=== PATIENT | female | born 1955 | race Caucasian/White ===

== ENCOUNTER 2016-10-08 22:37 | Emergency (ER) | payer OTHER ==
[~2016-10-08 22:37] MED LIST: ASPI81 PO; FISH1000 PO; MOTR200T47
[2016-10-08 22:39] VITALS: BP 146/73; PULSE 77; RESP 18; TEMP 97.7; O2SAT 97
--- NOTE | 2016-10-08 22:54 | PD ---
Physical Exam Time Seen by Provider: 22:51 Narrative 60 y/o female here for evaluation of abdominal discomfort, worsening, over the past several hours. Associated n/v. Denies fevers, chills, dysuria, increased frequency, diarrhea, constipation. vital signs reviewed. Seen at triage desk. Awaiting bed placement. Data Data Last Documented VS Vital Signs Date Time Temp Pulse Resp B/P Pulse Ox O2 Delivery O2 Flow Rate FiO2 10/08/16 22:39 97.7 77 18 146/73 97 Room Air [facility] Medical Record Reviewed: Yes Supervised Visit with JESENIA: Misbah Ngo October 08, 2016 22:54
[2016-10-08] MEDS ORDERED: SODIUM CHLORIDE 0.9% FLUSH 10 ML FLUSH IV FLUSH PRN (23:00)
[2016-10-08 23:12] VITALS: RESP 22; O2SAT 98
[2016-10-08] MEDS ORDERED: ONDANSETRON HCL 4 MG/2 ML VIAL ONE (23:13)
[2016-10-08 23:21] LABS: AUTOMATED NEUTROPHIL # 9.4 TH/MM3 (1.8-7.7); BASOPHIL # 0.1 TH/MM3 (0-0.2); BASOPHIL % 0.6 % (0.0-2.0); EOSINOPHIL # 0.1 TH/MM3 (0-0.4); EOSINOPHIL % 0.7 % (0.0-4.0); HEMATOCRIT 37.6 % (35.0-46.0); HEMO FLAGS DIFF FINAL; LYMPH % 20.2 % (9.0-44.0); LYMPHOCYTE # 2.7 TH/MM3 (1.0-4.8); MEAN CELL VOLUME 86.1 FL (80.0-100.0); MEAN CORPUSCULAR HEMOGLOBIN 28.5 PG (27.0-34.0); MONO % 6.9 % (0.0-8.0); NEUT % 71.6 % (16.0-70.0); PLATELET COUNT 308 TH/MM3 (150-450); RED BLOOD COUNT 4.36 MIL/MM3 (4.00-5.30); RED CELL DISTRIBUTION WIDTH 13.6 % (11.6-17.2); WHITE BLOOD COUNT 13.2 TH/MM3 (4.0-11.0)
[2016-10-08] MEDS ORDERED: SODIUM CHLOR 0.9% 1000 ML INJ 1,000 ML IV ONE (23:30)
[2016-10-08] MEDS ORDERED: ONDANSETRON HCL 4 MG/2 ML VIAL IV PUSH ONE (23:30)
[2016-10-08] MEDS ORDERED: MORPHINE SULFATE 8 MG/ML INJ IV PUSH ONE (23:30)
[2016-10-08 23:38] LABS: ALT (GPT) 25 U/L (10-53); ANION GAP 7 MEQ/L (5-15); AST (GOT) 18 U/L (15-37); BICARBONATE 28.4 MEQ/L (21.0-32.0); BLOOD UREA NITROGEN 21 MG/DL (7-18); CHLORIDE 105 MEQ/L (98-107); GLOMERULAR FILTRATION RATE 50 ML/MIN (>89); POTASSIUM 4.2 MEQ/L (3.5-5.1); SODIUM (NA) 140 MEQ/L (136-145)
[2016-10-08 23:40] LABS: ALKALINE PHOSPHATASE 66 U/L (45-117); TOTAL BILIRUBIN ADULT 0.4 MG/DL (0.2-1.0)
[2016-10-09] MEDS ORDERED: IOHEXOL 350 MG/ML 10 ML VIAL (for RAD DIAG) IV ONE (00:35)
--- NOTE | 2016-10-09 00:59 | RADRPT ---
EXAM DATE/TIME: 10/09/2016 00:34 [place] COMPARISON: No previous studies available for comparison. INDICATIONS : Low abdomen pain today. IV CONTRAST: 90 cc Omnipaque 350 (iohexol) IV ORAL CONTRAST: No oral contrast ingested. RADIATION DOSE: 9.96 CTDIvol (mGy) MEDICAL HISTORY : Cardiovascular disease. Hypertension. SURGICAL HISTORY : None. ENCOUNTER: Initial ACUITY: 2 days PAIN SCALE: 10/10 LOCATION: Bilateral low abdomen TECHNIQUE: Volumetric scanning of the abdomen and pelvis was performed. Using automated exposure control and ad justment of the mA and/or kV according to patient size, radiation dose was kept as low as reasonably achievable to obtain optimal diagnostic quality images. FINDINGS: Examination of the lung bases demonstrates no abnormality. No pleural fluid is identified. No pulmona ry nodules are present. The liver and spleen are normal in size and no focal defects are identified. The gallbladder and pancreas are unremarkable. No intrahepatic or extrahepatic ductal dilatation is s een. The adrenal glands are unremarkable. The left kidney is unremarkable. There is mild right hydron ephrosis and hydroureter with a 2 mm stone at the right ureteropelvic junction. Examination of the pelvis demonstrates no evidence of free fluid or pelvic mass. No abnormally enlarg ed inguinal or retroperitoneal lymph nodes are present. The bladder is unremarkable. CONCLUSION: 1. 2 mm right ureteropelvic junction stone with mild right hydronephrosis Fidencio Ward MD on October 09, 2016 at 0:55 Board Certified Radiologist. This report was verified electronically.
[2016-10-09] MEDS ORDERED: HYDROmorphone HCL PF 1 MG/ML VIAL IV PUSH ONE (01:00)
[2016-10-09 01:23] LABS: BLOOD, URINE LARGE (NEG); GLUCOSE,URINE NEG (NEG); KETONE, URINE NEG (NEG); MUCUS URINE FEW /lpf (OCC); NITRITE,URINE NEG (NEG); PH, URINE 5.5 (5.0-8.5); SQUAMOUS EPITHELIAL CELL URINE 1 /hpf (0-5); URINE COLOR LIGHT-RED (YELLW/STRAW)
[2016-10-09] MEDS ORDERED: ZOFR4TAB3 SL (01:37)
[2016-10-09] MEDS ORDERED: IBUP-232 PO (01:37)
[2016-10-09] MEDS ORDERED: TAMS5CAP PO (01:37)
[2016-10-09] MEDS ORDERED: PERC10TA27 PO (01:37)
--- NOTE | 2016-10-09 01:37 | PD ---
HPI Chief Complaint: Abdominal Pain Time Seen by Provider: 23:16 Travel History International Travel<30 days: No Contact w/Intl Traveler<30days: No Traveled to known affect area: No History of Present Illness HPI Patient 52-year-old female presents emergency Department with right flank and right lower quadrant abdominal pain fairly abrupt in onset a few hours prior to arrival. States been worsening over this time period. States been having some nausea without vomiting. Denies any dysuria denies any blood in the urine. States has not happened to her before. She said history of 4 sections in the past. States that she has [place] at home but didn't want to take any she didn't want to mask the pain prior to arrival. States the pain is sharp and cramping in nature and feels like she has a lot of gas. PFSH Past Medical History Anxiety: Yes Cardiovascular Problems: Yes High Cholesterol: Yes Diabetes: No Gastrointestinal Disorders: Yes (NERVOUS STOMACH) Hypertension: Yes (NOT DIAGNOSED W/HTN, BUT BP WAS 190'S SYS PRIOR TO ADMISSION ) ?: Not : 0 Ovarian Cysts: Yes Dilation and Curettage (D&C): Yes (X 3) Past Surgical History Section: Yes (X 4) Tonsillectomy: Yes Social History Alcohol Use: Yes (A FEW DRINKS PER WEEK) Tobacco Use: No Allergies-Medications (Allergen,Severity, Reaction): Coded Allergies: Seafood (Verified Allergy, Severe, 10/08/16) Streptomycin Sulfate (Verified Allergy, Severe, 10/08/16) Uncoded Allergies: MECLMIN (Adverse Reaction, Unknown, 08/31/09) Reported Meds & Prescriptions Reported Meds & Active Scripts Active Ibuprofen 600 Mg Tab 600 Mg PO Q8HR PRN Zofran Odt (Ondansetron Odt) 4 Mg Tab 4 Mg SL Q6HR PRN Percocet (Oxycodone-Acetaminophen) 10-325 mg Tab 1 Tab PO Q6H PRN Flomax (Tamsulosin HCl) 0.4 Mg Cap 0.4 Mg PO HS Reported Fish Oil 1,000 Mg Cap 1,000 Mg PO Aspirin 81 Mg Tab 81 Mg PO DAILY Motrin Ib (Ibuprofen) 200 Mg Tab Review of Systems Except as stated in HPI: all other systems reviewed are Neg Physical Exam Narrative GENERAL: [Well-developed well-nourished, appears uncomfortable but nontoxic. SKIN: Focused skin assessment warm/dry. HEAD: Atraumatic. Normocephalic. EYES: Pupils equal and round. No scleral icterus. No injection or drainage. ENT: No nasal bleeding or discharge. Mucous membranes pink and moist. NECK: Trachea midline. No JVD. CARDIOVASCULAR: Regular rate and rhythm. No murmur appreciated. RESPIRATORY: No accessory muscle use. Clear to auscultation. Breath sounds equal bilaterally. GASTROINTESTINAL: Abdomen soft, non-tender, nondistended. Hepatic and splenic margins not palpable. Minimal CVA tenderness on the right, negative on the left. Psoas and after signs negative. No rebound no percussive tenderness. MUSCULOSKELETAL: No obvious deformities. No clubbing. No cyanosis. No edema. NEUROLOGICAL: Awake and alert. No obvious cranial nerve deficits. Motor grossly within normal limits. Normal speech. PSYCHIATRIC: Appropriate mood and affect; insight and judgment normal. Data Data Last Documented VS Vital Signs Date Time Temp Pulse Resp B/P Pulse Ox O2 Delivery O2 Flow Rate FiO2 10/08/16 23:12 22 98 Room Air 10/08/16 22:39 97.7 77 146/73 Orders Complete Blood Count With Diff (10/08/16 22:59) Comprehensive Metabolic Panel (10/08/16 22:59) Lipase (10/08/16 22:59) Ua Includes Microscopic (10/08/16 22:59) Iv Access Insert/Monitor (10/08/16 22:59) Ecg Monitoring (10/08/16 22:59) Oximetry (10/08/16 22:59) Sodium Chloride 0.9% Flush (Ns Flush) (10/08/16 23:00) Ondansetron Inj (Zofran Inj) (10/08/16 23:13) Ondansetron Inj (Zofran Inj) (10/08/16 23:30) Morphine Inj (Morphine Inj) (10/08/16 23:30) Sodium Chlor 0.9% 1000 Ml Inj (Ns 1000 M (10/08/16 23:30) Ct Abd/Pel W Iv Contrast(Rout) (10/08/16 ) Iohexol 350 Inj (Omnipaque 350 Inj) (10/09/16 00:35) Hydromorphone Pf Inj (Dilaudid Pf Inj) (10/09/16 01:00) Oxycodone-Acetamin 5-325 Mg (Percocet (10/09/16 01:45) Ondansetron Odt (Zofran Odt) (10/09/16 01:45) Labs Laboratory Tests Test 10/08/16 10/09/16 23:05 01:10 White Blood Count 13.2 TH/MM3 Red Blood Count 4.36 MIL/MM3 Hemoglobin 12.4 GM/DL Hematocrit 37.6 % Mean Corpuscular Volume 86.1 FL Mean Corpuscular Hemoglobin 28.5 PG Mean Corpuscular Hemoglobin 33.0 % Concent Red Cell Distribution Width 13.6 % Platelet Count 308 TH/MM3 Mean Platelet Volume 7.1 FL Neutrophils (%) (Auto) 71.6 % Lymphocytes (%) (Auto) 20.2 % Monocytes (%) (Auto) 6.9 % Eosinophils (%) (Auto) 0.7 % Basophils (%) (Auto) 0.6 % Neutrophils # (Auto) 9.4 TH/MM3 Lymphocytes # (Auto) 2.7 TH/MM3 Monocytes # (Auto) 0.9 TH/MM3 Eosinophils # (Auto) 0.1 TH/MM3 Basophils # (Auto) 0.1 TH/MM3 CBC Comment DIFF FINAL Differential Comment Sodium Level 140 MEQ/L Potassium Level 4.2 MEQ/L Chloride Level 105 MEQ/L Carbon Dioxide Level 28.4 MEQ/L Anion Gap 7 MEQ/L Blood Urea Nitrogen 21 MG/DL Creatinine 1.12 MG/DL Estimat Glomerular Filtration 50 ML/MIN Rate Random Glucose 162 MG/DL Calcium Level 9.7 MG/DL Total Bilirubin 0.4 MG/DL Aspartate Amino Transf 18 U/L (AST/SGOT) Alanine Aminotransferase 25 U/L (ALT/SGPT) Alkaline Phosphatase 66 U/L Total Protein 8.0 GM/DL Albumin 4.6 GM/DL Lipase 107 U/L Urine Color LIGHT-RED Urine Turbidity CLOUDY Urine pH 5.5 Urine Specific [place] 1.035 Urine Protein 30 mg/dL Urine Glucose (UA) NEG mg/dL Urine Ketones NEG mg/dL Urine Occult Blood LARGE Urine Nitrite NEG Urine Bilirubin NEG Urine Urobilinogen LESS THAN 2.0 MG/DL Urine Leukocyte Esterase NEG Urine RBC /hpf Urine WBC 3 /hpf Urine Squamous Epithelial 1 /hpf Cells Urine Amorphous Sediment RARE Urine Mucus FEW /lpf MDM Medical Decision Making Medical Screen Exam Complete: Yes Emergency Medical Condition: Yes Differential Diagnosis Kidney stone, SBO, appendicitis, cholecystitis less likely, dehydration, urinary tract infection. Narrative Course Patient was roomed in the emergency department, she was given morphine on arrival which did relieve her pain some but still appears quite uncomfortable. She was given Dilaudid afterwards which brought her pain down to a manageable 3 out of 10 level. On revisit she is resting comfortably. Her abdomen is benign but given her surgeries risk for SBO is possible and CT examination is performed : Last 24 hours Impressions Abdomen/Pelvis CT 10/08/16 0000 Signed Impressions: Service Date/Time: Sunday, October 09, 2016 00:34 - CONCLUSION: 1. 2 mm right ureteropelvic junction stone with mild right hydronephrosis Fidencio Ward MD Discussed the results with the patient likely this is causing her pain. Her pain is now manageable and she wishes to go home and follow-up with urology outpatient. Her labs showed minimal elevation of white blood cell count 13,000 otherwise they are reassuring. Urine noninfected. She is stable for discharge. Discussed symptomatic management returned ED criteria. Diagnosis Primary Impression: Kidney stone Referrals: Harshal Carnes MD Med/Other Pt SpecificInfo: Prescription(s) given Scripts Ibuprofen 600 Mg Qjq801 Mg PO Q8HR PRN (PAIN) #20 TAB Ref 0 Prov:Jaime Raya MD 10/09/16 Ondansetron Odt (Zofran Odt)4 Mg Tab4 Mg SL Q6HR PRN (Nausea/Vomiting) #30 TAB Ref 0 Prov:Jaime Raya MD 10/09/16 Oxycodone-Acetaminophen (Percocet)10-325 mg Tab1 Tab PO Q6H PRN (PAIN) #15 TAB Ref 0 Prov:Jaime Raya MD 10/09/16 Tamsulosin (Flomax)0.4 Mg Cap0.4 Mg PO HS #30 CAP Ref 0 Prov:Jaime Raya MD 10/09/16 Disposition: 01 DISCHARGE HOME Condition: Stable Jaime Raya MD October 09, 2016 01:37
[2016-10-09] MEDS ORDERED: oxyCODONE/ACETAMINOPHEN 5 MG/325 MG TAB PO ONE (01:45)
[2016-10-09] MEDS ORDERED: ONDANSETRON ODT 4 MG TAB PO ONE (01:45)
== END 2016-10-09 02:04 | disposition home or self-care (01) ==
LOC: NEPD 22:37
DX: N20.2 Calculus of kidney with calculus of ureter (principal); N13.2 Hydronephrosis with renal and ureteral calculous obstruction; Z79.82 Long term (current) use of aspirin
CPT/HCPCS: 74177; 80053; 81001; 83690; 85025; 96361; 96374; 96375; 99284; J1170; J2270; J2405; J7030; Q9967